=== PATIENT | female | born 1945 | race Caucasian/White ===

== ENCOUNTER 2023-05-04 10:31 | Inpatient (IN) | payer OTHER ==
[~2023-05-04] VITALS: Ht 160 cm; Wt 66.2 kg
[~2023-05-04 10:31] MED LIST: MELOXICAM7.5 MG PO; OSTERA TABLET1 EACH PO; PERCOCET 5-3251 EACH PO; XARELTO10 MG; [UNRECOGNIZED DRUG - OTHER] PO
[2023-05-07] MEDS ORDERED: SPRITAM250 MG PO (10:42)
== END 2023-05-09 13:28 | disposition home or self-care (01) | DRG 581 ==
LOC: SURH 05-08 08:00 → O/R 05-08 13:45 → SURG 05-08 16:06
PROVIDERS: ADMIT Specialist; ATTEND Specialist
PROC: 0HBU0ZZ Excision of Left Breast, Open Approach (ICD-10-PCS; 2023-05-08)
PROC: 07B60ZZ Excision of Left Axillary Lymphatic, Open Approach (ICD-10-PCS; principal; 2023-05-08 09:15)
DX: C50.512 Malignant neoplasm of lower-outer quadrant of left female breast (principal); Z20.822 Contact with and (suspected) exposure to COVID-19

== ENCOUNTER 2023-06-26 08:01 | Outpatient (CLI) | payer OTHER ==
[~2023-06-26 08:01] MED LIST changes: +SPRITAM250 MG PO
== END 2023-06-26 08:06 | disposition home or self-care (01) ==
LOC: NUCLEAR 08:01
PROVIDERS: ATTEND Internal Medicine Hematology & Oncology
DX: C50.412 Malignant neoplasm of upper-outer quadrant of left female breast (principal); Z17.0 Estrogen receptor positive status [ER+]
CPT/HCPCS: 78815; A9552

== ENCOUNTER 2025-05-12 05:28 | Day surgery (SDC) | payer OTHER ==
[2025-05-06 08:33] LABS: BASO % 0.4 % (0.1-1.2); EOS # 0.03 (0.04-0.54); EOS % 0.7 % (0.7-7.0); HEMATOCRIT 39.7 % (34.1-44.9); HEMOGLOBIN 13.2 g/dL (11.2-15.7); LYMPH # 1.16 (1.18-3.74); LYMPH % 25.8 % (19.3-53.1); MEAN CORPUSCULAR HEMOGLOBIN 31.4 pg (25.6-32.2); MONO # 0.49 (0.24-0.82); MONO % 10.9 % (4.7-12.5); NEUT # 2.78 (1.56-6.13); PH,URINE 7.5 (5.0-8.0); PLATELET COUNT 182 K/uL (163-369); URINE APPEARANCE Clear; URINE BILIRRUBIN Negative (NEGATIVE); URINE BLOOD Negative; URINE COLOR Yellow; URINE GLUCOSE Negative (NEGATIVE); URINE KETONE Negative (NEGATIVE); URINE LEUKOCYTE Trace; URINE NITRATE Negative; URINE PROTEIN Negative (NEGATIVE); URINE UROBILINOGEN 0.2 E.U./dl
[2025-05-06 08:34] LABS: URINE BACTERIA 28.1 uL (0.0-1933); URINE RBC 15.3 uL (0.0-20.8); URINE WBC 2.9 uL (0.0-23.2)
[2025-05-06 08:41] LABS: URINE CAST 0.14 uL (0.0-1.40)
[2025-05-06 09:01] LABS: INR 1.04; PARTIAL THROMBOPLASTIN TIME 27.2 SECONDS (22.0-34.0); PROTHROMBIN TIME 11.3 SECONDS (9.0-11.5)
[2025-05-06 09:37] LABS: ALBUMIN 3.5 gm/dL (3.4-5.0); BILIRUBIN TOTAL 0.52 mg/dL (0.3-1.2); CALCIUM 9.1 mg/dL (8.5-10.1); CREATININE SERUM 0.54 mg/dL (0.55-1.02); GFR 108.35; GLOBULINA 3.2 G/DL (2.4-3.5); POTASSIUM 4.58 mEq/L (3.5-5.1); TOTAL PROTEIN 6.7 gm/dL (6.4-8.2)
[~2025-05-12 05:28] MED LIST changes: +ANASTROZOLE1 MG PO; +KEPPRA500 MG
[2025-05-12] MEDS ORDERED: CEFAZOLIN SODIUM 1,000 MG VIAL ONE ×2 (07:16→11:48)
[2025-05-12] MEDS ORDERED: LIDOCAINE HCL 1% 20 ML VIAL IJ ONE (09:59)
[2025-05-12] MEDS ORDERED: CEFAZOLIN SODIUM 1,000 MG VIAL IV SCH (11:00)
[2025-05-12] MEDS ORDERED: FAMOTIDINE/PF 20 MG/10 ML SYRINGE IV SCH (11:00)
[2025-05-12] MEDS ORDERED: FAMOTIDINE/PF 20 MG/2 ML VIAL ONE (11:49)
== END 2025-05-12 13:15 | disposition home or self-care (01) ==
LOC: CIR.AMB 05:28
PROVIDERS: ATTEND Specialist
DX: T82.594A Other mechanical complication of infusion catheter, initial encounter (principal); C50.512 Malignant neoplasm of lower-outer quadrant of left female breast